=== PATIENT | male | born 1990 | race Caucasian/White ===

== ENCOUNTER 2022-02-13 04:33 | Emergency (ER) | payer BC ==
[2022-02-13 06:12] LABS: POTASSIUM,K 3.8 mmol/L (3.5-5.1)
== END 2022-02-13 06:44 | disposition home or self-care (01) ==
LOC: MW.ED 04:33
DX: R00.2 Palpitations (principal); Z79.899 Other long term (current) drug therapy
CPT/HCPCS: 36415; 80053; 83735; 84443; 85025; 93005; 99285